=== PATIENT | male | born 1995 | race Caucasian/White ===

== ENCOUNTER 2021-02-23 21:41 | Emergency (ER) | payer MEDICAID ==
[~2021-02-23] VITALS: Ht 162.6 cm; Wt 52.2 kg
[2021-02-23 22:09] VITALS: BP 124/84
[2021-02-23] MEDS ORDERED: PRED50TA PO (22:58)
[2021-02-23] MEDS ORDERED: DIPH25CA83 PO (23:01)
[2021-02-23] MEDS ORDERED: DIPH50CA4 PO (23:01)
== END 2021-02-23 23:08 | disposition home or self-care (01) ==
LOC: ER 21:44
DX: L23.9 Allergic contact dermatitis, unspecified cause (principal)